=== PATIENT | female | born 1980 | race Caucasian/White ===

== ENCOUNTER 2018-02-11 21:04 | Emergency (ER) | payer MEDICAID ==
[~2018-02-11 21:04] MED LIST: ADDERALL; ALPR1 PO; AMPDEX30CR PO; CITA20 PO; CLON.5 PO; CROMOLYN SODIUM BOTHEYES; CYCL10 PO; HYDACE5 PO; HYDHCL25 PO; IBUHYD PO; IBUP800 PO; Keflex500 MG PO; MULVITMIND PO; NAPR500 PO; NEXPLANON; NITR100CA PO; NUVA RING; Nuvaring Vagin1 EACH; OXYACE5T PO; Percocet 5-3251 EACH PO; TRAM50 PO; Ultram50 MG PO; Verotin-Gr Cap1 EACH PO; XANAX; Zantac150 MG PO; Zofran Odt4 MG SL
== END 2018-02-11 22:00 | disposition left against medical advice (07) ==
LOC: ER 21:04
DX: Z53.21 Procedure and treatment not carried out due to patient leaving prior to being seen by health care provider (principal)

== ENCOUNTER 2018-05-16 21:27 | Emergency (ER) | payer SELFPAY ==
[~2018-05-16] VITALS: Ht 160 cm; Wt 59.0 kg
== END 2018-05-16 23:46 | disposition home or self-care (01) ==
LOC: ER 21:27
DX: S00.11XA Contusion of right eyelid and periocular area, initial encounter (principal); W22.8XXA Striking against or struck by other objects, initial encounter; Z88.2 Allergy status to sulfonamides; Z88.1 Allergy status to other antibiotic agents; Z79.899 Other long term (current) drug therapy; F32.9 Major depressive disorder, single episode, unspecified; F41.9 Anxiety disorder, unspecified
CPT/HCPCS: 70480; 99283-25

== ENCOUNTER → 2022-09-04 | Outpatient (CLI) | payer OTHER | END | disposition home or self-care (01) | LOC: LAB 14:35 → LAB SHORT 14:35 | DX: J34.89 Other specified disorders of nose and nasal sinuses (principal) | CPT/HCPCS: 87015; 87116; 87206 ==

== ENCOUNTER 2023-03-02 22:57 | Emergency (ER) | payer OTHER ==
[~2023-03-02] VITALS: Ht 160 cm; Wt 56.7 kg
[2023-03-02 23:07] VITALS: BP 116/104
== END 2023-03-03 00:11 | disposition home or self-care (01) ==
LOC: ER 22:57
DX: S66.911A Strain of unspecified muscle, fascia and tendon at wrist and hand level, right hand, initial encounter (principal); X58.XXXA Exposure to other specified factors, initial encounter; Z98.890 Other specified postprocedural states; Z88.2 Allergy status to sulfonamides; Z88.1 Allergy status to other antibiotic agents
CPT/HCPCS: J1885

== ENCOUNTER 2023-08-21 11:44 | Emergency (ER) | payer OTHER ==
[~2023-08-21] VITALS: Ht 160 cm; Wt 58.1 kg
[2023-08-21 11:48] VITALS: BP 144/109
[2023-08-21] MEDS ORDERED: ALPRAZOLAM110 PO (12:12)
[2023-08-21] MEDS ORDERED: ETONOGESTREL-E1 EAC1 VAG (12:13)
== END 2023-08-21 12:43 | disposition home or self-care (01) ==
LOC: ER 11:44
DX: M25.511 Pain in right shoulder (principal); Z88.1 Allergy status to other antibiotic agents; Z88.2 Allergy status to sulfonamides; Z79.899 Other long term (current) drug therapy
CPT/HCPCS: 73030; 99283-25